=== PATIENT | male | born 1990 | race Caucasian/White ===

== ENCOUNTER 2023-05-15 18:14 | Observation (INO) ==
[2023-05-15] MEDS ORDERED: PANTOprazole 40 MG in SYRINGE 0 ML IV ONE ×2 (18:37→23:28)
[2023-05-15] MEDS ORDERED: ONDANSETRON INJ 2 MG/ML 2 ML VIAL IV STA (18:37)
--- NOTE | 2023-05-15 18:37 | ED Triage Note ---
Date of Service May 15, 2023 Provider in Triage Author: Eliot Rasmussen History of Present Illness This patient was briefly evaluated while in triage. An abbreviated physical exam was performed. This patient is a 33-year-old Male who presents to the ED for evaluation of vomi ting today. Had blood in the emesis. Symptoms started around 5:30pm, roughly 1 hour prior to arrival. No recent travel. No NSAID use. Does smoke tobacco and drink alcohol. Physical Exam Limited Triage Exam: VITALS: Vitals are noted on the nurse's note and reviewed by myself. Vital signs stable. GENERAL: Well-developed, well-nourished, white male, who is in no acute distress and resting comfortably. Patient is cooperative with the examination. HEART: Regular rate and rhythm without murmurs gallops or rubs. LUNGS: Clear to auscultation bilaterally without wheezes, rales or rhonchi. No retractions or accessory muscle use. NEURO: Patient was alert and oriented to person place and time. CN II through XII grossly intact. Initial orders for labs and / or imaging were placed and patient was placed in the waiting area until a bed is available. Please see further documentation for the full ED course.
[2023-05-15] MEDS ORDERED: SODIUM CHLORIDE 0.9% 1,000 ML IV SCH (18:45)
--- NOTE | 2023-05-15 19:02 | XRay Report ---
KUB HISTORY: Acute nausea with vomiting n/v COMPARISON: None. FINDINGS: Nonobstructive bowel gas pattern. Renal shadows are partially obscured by bowel gas. Left p elvic basin phlebolith. No renal calculi. No ureteral calculi. No pneumoperitoneum or pneumatosis. N o fracture. IMPRESSION: Nonobstructive bowel gas pattern. ACT 112: Negative or not required by law. The above report was generated using voice recognition software. It may contain grammatical, syntax o r spelling errors. Electronically signed by: Jaison Barakat M.D. 05/15/2023 7:01 PM
[2023-05-15 19:45] LABS: Basophils # (auto) 0.03 K/uL (0.00-0.20); Basophils % (auto) 0.3 %; Eosinophils # (auto) 0.07 K/uL (0.00-0.50); Eosinophils % (auto) 0.7 %; Hematocrit (blood only) 50.6 % (42.0-52.0); Hemoglobin 17.5 g/dl (14.0-18.0); Immature Granulocytes # (auto) 0.07 K/uL (0.01-0.20); Immature Granulocytes % (auto) 0.7 %; Lymphocytes # (auto) 2.27 K/uL (1.20-3.40); Lymphocytes % (auto) 21.1 %; Mean Corpuscular Hemoglobin 28.3 pg (25.0-34.0); Mean Corpuscular Hgb Conc 34.6 g/dL (32.0-36.0); Mean Corpuscular Volume 81.7 fL (80.0-100.0); Mean Platelet Volume 10.7 fL (9.4-12.4); Monocytes % (auto) 5.6 %; Neutrophils # (auto) 7.71 K/uL (1.40-6.50); Neutrophils % (auto) 71.6 %; Platelet Count 323 K/uL (130-400); RDW Standard Deviation 38.1 fL (36.4-46.3); Red Blood Count 6.19 M/uL (4.70-6.10); White Blood Count 10.75 K/ul (4.8-10.8)
[2023-05-15 20:05] LABS: Albumin Globulin Ratio 1.5 (0.9-2); Albumin Level 4.9 gm/dl (3.4-5.0); BUN Creatinine Ratio 6.7 (10-20); Calcium 9.9 mg/dl (8.6-10.3); Creatinine Clr Calc Pharmacy 120.5 ml/min; Est GFR (African American) 129.6 ml/min; Est GFR (Non-African American) 111.8 ml/min; Globulin 3.3 gm/dl (2.5-4.0); Potassium 3.2 mmol/L (3.5-5.1); Total Protein 8.2 gm/dl (6.0-8.3)
[2023-05-15 20:14] LABS: Partial Thromboplastin Time 27 Seconds (21-31); Prothrombin Time 11.3 Seconds (9.0-12.0)
[2023-05-15 20:33] LABS: Adenovirus PCR Not Detected (NotDetected); Bordetella parapertussis PCR Not Detected (NotDetected); Bordetella pertussis PCR Not Detected (NotDetected); Chlamydia pneumoniae PCR Not Detected (NotDetected); Coronavirus 229E PCR Not Detected (NotDetected); Coronavirus CoV-2 (COVID19)PCR Not Detected (NotDetected); Coronavirus HKU1 PCR Not Detected (NotDetected); Coronavirus NL63 PCR Not Detected (NotDetected); Coronavirus OC43PCR Not Detected (NotDetected); Human Metapneumovirus PCR Not Detected (NotDetected); Influenza A PCR Not Detected (NotDetected); Influenza B PCR Not Detected (NotDetected); Mycoplasma pneumoniae PCR Not Detected (NotDetected); Parainfluenza Virus 1 PCR Not Detected (NotDetected); Parainfluenza Virus 2 PCR Not Detected (NotDetected); Parainfluenza Virus 3 PCR Not Detected (NotDetected); Parainfluenza Virus 4 PCR Not Detected (NotDetected); Respiratory Syncytial VirusPCR Not Detected (NotDetected); Rhinovirus/Enterovirus PCR Not Detected (NotDetected)
[2023-05-15 21:47] LABS: Appearance Urine Clear (Clear); Bilirubin Urine Negative (Negative); Blood Urine Negative (Negative); Color Urine Yellow; Glucose Urine UA Negative (Negative); Ketones Urine Negative (Negative); Leukocyte Esterase Urine Negative (Negative); Nitrite Urine Negative (Negative); Protein Urine Negative (Negative); Specific Gravity Urine 1.007 (1.000-1.030); Urobilinogen Urine Negative (Negative); pH Urine 7.5 (4.5-7.5)
[2023-05-15 21:53] LABS: Hematocrit (blood only) 44.3 % (42.0-52.0); Hemoglobin 15.5 g/dl (14.0-18.0)
--- NOTE | 2023-05-15 23:33 | History & Physical Report ---
Date of Service May 15, 2023 Assessment & Plan (1) Hematemesis: Plan: 33 yo male with no significant PMHx presents with hematemesis. #Hematemesis -presented with sudden onset vomiting x2 episodes with bright red blood. No clear etiology however suspect upper GI bleed. Minimal alcohol use. DDx stress ulcer vs gastritis. Tachycardic on presentation but this has improved. No leukocytosis. He did have a 2 point drop in Hgb while in the ED. CXR unremarkabl e per my read. KUB with nonobstructive gas pattern. -NPO, IVF, protonix gtt, pepcid bid -GI consulted DVT ppx: SCDs; suspected active bleed FEN/GI: NPO Code Status: full Dispo: med tele History of Present Illness Chief Complaint: Hematemesis Primary Care Provider: JASON PCP 33 yo male with no significant PMHx presents with hematemesis. Yesterday afternoon patient had an episode of sudden onset vomiting with bright red blood. He vomited again on the way to the hospital. Denies headache, fevers, chills, fatigue, chest pain, shortness of breath, abdominal pain, nausea, diarrhea, dysuria, melena, extremity numbness/tingling/weakness. He smokes about 4 cigarettes a day for the last 10 years. Drinks about 4 beers a week on average. Denies recreational drug use. No history of GERD. No history of GI bleed. No recent illness. No NSAID use. He has had increased amount of stress over the last 2 months as he is going through a divorce. Because of this he does endorse some sadness and loss of appetite over that time with associated weight loss of about 10 pounds. Allergies Allergy/AdvReac Type Severity Reaction Status Date / Time No Known Allergies Allergy Unverified 05/15/23 23:26 Home Medications Medication Instructions Recorded Confirmed Type No Known Home Medications 05/15/23 05/15/23 History Past Med/Surg History Medical History (Updated 05/16/23 @ 04:33 by Leisa Lange DO) No significant past medical history Surgical History (Updated 05/16/23 @ 04:33 by Leisa Lange DO) No significant past surgical history Family History (Updated 05/16/23 @ 04:34 by Leisa Lange DO) Other No significant family history Social History Smoking Status: Current every day smoker Feels Safe at Home: Yes Review of Systems Review of Systems: All systems reviewed & are unremarkable except as noted in HPI & below Physical Exam Physical Exam: Constitutional: in no acute distress, pleasant and normal affect, intact memory. AOx3. Vitals as above. HEENT: No scleral injection or discharge. Moist mucous membranes. Clear oropharynx without exudate/blood. Neck: Supple without lymphadenopathy. Trachea midline. Lungs: Clear to auscultation bilaterally with good effort. No whee zes/rales/rhonchi. Cardiac: Regular rate and rhythm. No murmurs. No lower extremity edema. 2+ distal peripheral pulses. Abdomen: Bowel sounds present. Soft, nontender, and nondistended.No guarding. No hepatosplenomegaly. MSK: No cyanosis or clubbing. Extremities motor strength 5/5. Skin: No rashes, warm, dry. Neurologic: no focal deficits Results & Data Results & Data Vital Signs (Past 12 Hours) Vital Signs Temp Pulse Pulse Resp BP BP Pulse Ox 05/15/23 23:09 98 H 19 122/78 97 05/15/23 21:00 88 20 128/83 97 05/15/23 20:52 99 H 05/15/23 18:32 36.9 C 106 H 18 142/80 H 97 O2 Del Method 05/15/23 23:09 Room Air 05/15/23 21:00 Room Air 05/15/23 20:52 05/15/23 18:32 Room Air Laboratory Results Laboratory Results WBC 10.75 K/ul (4.8-10.8) 05/15/23 19:32 RBC 6.19 M/uL (4.70-6.10) H 05/15/23 19:32 Hgb 15.5 g/dl (14.0-18.0) 05/15/23 21:40 Hct 44.3 % (42.0-52.0) 05/15/23 21:40 MCV 81.7 fL (80.0-100.0) 05/15/23 19:32 MCH 28.3 pg (25.0-34.0) 05/15/23 19:32 MCHC 34.6 g/dL (32.0-36.0) 05/15/23 19:32 RDW Std Deviation 38.1 fL (36.4-46.3) 05/15/23 19:32 RDW Coeff of Juancarlos 13.0 % (11.5-14.5) 05/15/23 19:32 Plt Count 323 K/uL (130-400) 05/15/23 19:32 MPV 10.7 fL (9.4-12.4) 05/15/23 19:32 Immature Gran % (Auto) 0.7 % 05/15/23 19:32 Neut % (Auto) 71.6 % 05/15/23 19:32 Lymph % (Auto) 21.1 % 05/15/23 19:32 Campbell % (Auto) 5.6 % 05/15/23 19:32 Eos % (Auto) 0.7 % 05/15/23 19:32 Baso % (Auto) 0.3 % 05/15/23 19:32 Neut # (Auto) 7.71 K/uL (1.40-6.50) H 05/15/23 19:32 Lymph # (Auto) 2.27 K/uL (1.20-3.40) 05/15/23 19:32 Campbell # (Auto) 0.60 K/uL (0.11-0.59) H 05/15/23 19:32 Eos # (Auto) 0.07 K/uL (0.00-0.50) 05/15/23 19:32 Baso # (Auto) 0.03 K/uL (0.00-0.20) 05/15/23 19:32 Immature Gran # (Auto) 0.07 K/uL (0.01-0.20) 05/15/23 19:32 PT 11.3 Seconds (9.0-12.0) 05/15/23 19:32 INR 1.0 (0.9-1.1) 05/15/23 19:32 APTT 27 Seconds (21-31) 05/15/23 19:32 PTT Ratio 1.0 05/15/23 19:32 Sodium 140 mmol/L (136-145) 05/15/23 19:32 Potassium 3.2 mmol/L (3.5-5.1) L 05/15/23 19:32 Chloride 104 mmol/L (98-107) 05/15/23 19:32 Carbon Dioxide 26 mmol/L (21-32) 05/15/23 19:32 Anion Gap 10 (3-11) 05/15/23 19:32 BUN 6 mg/dl (6-23) 05/15/23 19:32 Creatinine 0.90 mg/dl (0.6-1.4) 05/15/23 19:32 Est Cr Clr Drug Dosing 120.5 ml/min 05/15/23 19:32 Est GFR ( Amer) 129.6 ml/min 05/15/23 19:32 Est GFR (Non-Af Amer) 111.8 ml/min 05/15/23 19:32 BUN/Creatinine Ratio 6.7 (10-20) L 05/15/23 19:32 Glucose 84 mg/dl (70-99(Fasting)) 05/15/23 19:32 Calcium 9.9 mg/dl (8.6-10.3) 05/15/23 19:32 Total Bilirubin 1.0 mg/dl (0.2-1.0) 05/15/23 19:32 AST 17 U/L (13-39) 05/15/23 19:32 ALT 16 U/L (7-52) 05/15/23 19:32 Alkaline Phosphatase 74 U/L (34-104) 05/15/23 19:32 Total Protein 8.2 gm/dl (6.0-8.3) 05/15/23 19:32 Albumin 4.9 gm/dl (3.4-5.0) 05/15/23 19:32 Globulin 3.3 gm/dl (2.5-4.0) 05/15/23 19:32 Albumin/Globulin Ratio 1.5 (0.9-2) 05/15/23 19:32 Urine Color Yellow 05/15/23 20:36 Urine Appearance Clear (Clear) 05/15/23 20:36 Urine pH 7.5 (4.5-7.5) 05/15/23 20:36 Ur Specific Gepp 1.007 (1.000-1.030) 05/15/23 20:36 Urine Protein Negative (Negative) 05/15/23 20:36 Urine Glucose (UA) Negative (Negative) 05/15/23 20:36 Urine Ketones Negative (Negative) 05/15/23 20:36 Urine Blood Negative (Negative) 05/15/23 20:36 Urine Nitrite Negative (Negative) 05/15/23 20:36 Urine Bilirubin Negative (Negative) 05/15/23 20:36 Urine Urobilinogen Negative (Negative) 05/15/23 20:36 Ur Leukocyte Esterase Negative (Negative) 05/15/23 20:36 Ethyl Alcohol mg/dL < 10.0 mg/dl (<10.0) 05/15/23 19:32 Adenovirus (PCR) Not Detected (NotDetected) 05/15/23 19:30 B. pertussis DNA (PCR) Not Detected (NotDetected) 05/15/23 19:30 B.parapertussis DNA PCR Not Detected (NotDetected) 05/15/23 19:30 C. pneumoniae DNA (PCR) Not Detected (NotDetected) 05/15/23 19:30 Coronavirus OC43 (PCR) Not Detected (NotDetected) 05/15/23 19:30 Coronavirus HKU1 (PCR) Not Detected (NotDetected) 05/15/23 19:30 Coronavirus 229E (PCR) Not Detected (NotDetected) 05/15/23 19:30 SARS-CoV-2 (PCR) Not Detected (NotDetected) 05/15/23 19:30 Coronavirus NL63 (PCR) Not Detected (NotDetected) 05/15/23 19:30 Human Metapneumovir PCR Not Detected (NotDetected) 05/15/23 19:30 Influenza Type A (PCR) Not Detected (NotDetected) 05/15/23 19:30 Influenza Type B (PCR) Not Detected (NotDetected) 05/15/23 19:30 M. pneumoniae (PCR) Not Detected (NotDetected) 05/15/23 19:30 Parainfluenza 1 (PCR) Not Detected (NotDetected) 05/15/23 19:30 Parainfluenza 2 (PCR) Not Detected (NotDetected) 05/15/23 19:30 Parainfluenza 3 (PCR) Not Detected (NotDetected) 05/15/23 19:30 Parainfluenza 4 (PCR) Not Detected (NotDetected) 05/15/23 19:30 RSV (PCR) Not Detected (NotDetected) 05/15/23 19:30 Entero/Rhino (PCR) Not Detected (NotDetected) 05/15/23 19:30 Impressions KUB X-Ray 05/15/23 18:38 KUB HISTORY: Acute nausea with vomiting n/v COMPARISON: None. FINDINGS: Nonobstructive bowel gas pattern. Renal shadows are partially obscured by bowel gas. Left pelvic basin phlebolith. No renal calculi. No ureteral calculi. No pneumoperitoneum or pneumatosis. No fracture. IMPRESSION: Nonobstructive bowel gas pattern. ACT 112: Negative or not required by law. The above report was generated using voice recognition software. It may contain grammatical, syntax or spelling errors. Electronically signed by: Jaison Barakat M.D. 05/15/2023 7:01 PM Supervising Physician Co-Signing Physician Notes Patient seen and examined, chart reviewed, case discussed with Dr. Ramos and I agree with the assessment and plan as above. In brief, patient is a 33yo male with no significant past medical or surgical history. He had sudden onset vomiting today which had some bright red blood at the end of the vomiting episode. He then had another episode of hematemesis. No abdominal pain. No liver disease or coagulopathy He drinks and smokes sparingly. Takes Advil infrequently On exam his is afebrile, HD stable, NAD Skin - no rash HEENT - MMM, Neck supple Heart - +S1/S2, regular Lungs - CTA Abd - soft, NT/ND Ext - warm, well perfused Labs and images reviewed. 17.5 --> 15.5. BUN is WNL Assessment/plan - 33yo male with hematemesis. Suspect Nikole-Yolanda tear vs gastritis, esophagitis or ulcer HD stable. No further bleeding. H/H is acceptable -Admit to medical with telemetry -Maintain PIV access -Protonix gtt initiated in ER - will continue -Trend CBC -GI consultation appreciated -Remainder as above Resident Activity Tracking Resident Involvement: Resident Care Provided Care Provided: Adult Hospital Medicine
[2023-05-16] MEDS ORDERED: FAMOTIDINE 20 MG in SYRINGE 3 ML IV STA (00:22)
[2023-05-16] MEDS: PANTOprazole 40 MG in DEXTROSE 5% MINI-B 100 ML IV SCH ×3 (00:45→11:07)
--- NOTE | 2023-05-16 02:00 | Emergency Department Note ---
Impression & Plan Hematemesis ED Provider Note CHIEF COMPLAINT: Bloody vomit HISTORY OF PRESENT ILLNESS: This 33-year-old male patient with no significant past medical history presents to the emergency department with complaints of vomiting blood. 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 Initial emesis was not bloody but subsequent episodes where bright red blood. The patient denies any diarrhea or significant abdominal pain at this time. He states he did have 3 beers earlier in the day. REVIEW OF SYSTEMS: A review of systems was performed with positives and pertinent negatives listed in the history of present illness. 10 systems were reviewed and are otherwise negative. ALLERGIES: see below MEDICATIONS: see below PMH: see below SOCIAL HISTORY: see below DDx: inflammatory bowel disease, malignancy, Nikole-Fulton tear, esophagitis, peptic ulcer disease, variceal bleed, gastritis, epistaxis, as well as others PHYSICAL EXAM: Vital signs reviewed. General: Well-appearing 33-year-old male, in no significant distress. HEENT: No scleral icterus, PERRLA, neck supple. Atraumatic. Cardiovascular: Regular rate and rhythm, no extra sounds. Pulmonary: Clear to auscultation bilaterally, normal work of breathing. Abdomen: Soft, minimal epigastric tenderness, no rebound or guarding. Nontender, nondistended, positive bowel sounds. Musculoskeletal: Atraumatic, no peripheral edema. Neurologic: Patient awake alert and oriented x 3, speech is clear Skin: Warm, dry, no rash EMERGENCY DEPARTMENT COURSE/MDM: This patient was evaluated and appeared to be in no significant distress. Orders have been placed by the provider in triage. Patient received IV Zofran and IV Protonix, hydrated with normal saline solution. KUB and chest x-ray were performed and reveal no evidence of free air or obstruction. I suspect the patient is suffering from Nikole-Fulton tear. Patient's initial hemoglobin was 17.5, on repeat it was 15.5. This may be an element of dilution however with patient's upper GI bleeding and hemoglobin drop, it is felt to be in the patient's best interest for close observation in the hospital. CT imaging of the abdomen pelvis was considered but felt not to be necessary at this time. Case was discussed with Dr. Lange of the hospitalist service who has agreed to evaluate the patient for admission and further management. The patient has expressed understanding and agrees. MONITORING: An order for cardiac monitoring was placed and the patient is noted to be in a sinus rhythm at 99 beats per minute. RADIOLOGY: KUB to my interpretation reveals no evidence of obstruction, no free air. Otherwise defer to radiology Chest x-ray to my interpretation reveals no evidence of focal lung consolidation or failure, no free air. Otherwise defer to radiology. DISPOSITION: Admission Past Med/Surg History Medical History (Updated 05/20/23 @ 06:40 by Saima Disla MD) No significant past medical history Surgical History (Updated 05/16/23 @ 04:33 by Leisa Lange DO) No significant past surgical history Family History (Updated 05/16/23 @ 04:34 by Leisa Lange DO) Other No significant family history Social History Smoking Status: Current every day smoker Tobacco Type: Cigarettes Hx Alcohol Use: Yes Alcohol type: beer Hx Substance Use: No Preferred Language: [place] Communication Ability: Effective Quill Skinner Required: No Beliefs That Will Affect Care: None Current Living Situation: Spouse Feels Safe at Home: Yes Assistive Devices: Glasses Allergies Allergies Allergy/AdvReac Type Severity Reaction Status Date / Time No Known Allergies Allergy Unverified 05/15/23 23:26 Home Meds Previous Rx's Medication Instructions Recorded pantoprazole 40 mg tablet,delayed 40 mg PO BID #60 tabs 05/16/23 release Results & Data (ED) Vital Signs Vital Signs - 24 hr 05/15/23 18:32 05/15/23 20:52 05/15/23 21:00 Temperature 36.9 C Temperature Source Temporal Artery Scan Pulse Rate 106 H 99 H 88 Pulse Rate [Apical] Pulse Rate from SpO2 Sensor 88 Pulse Rhythm [Apical] Pulse Strength [Apical] Respiratory Rate 18 20 Respiratory Effort / Characteristics Non-Labored Spontaneous Respiratory Depth Normal Respiratory Pattern Blood Pressure 142/80 H 128/83 Blood Pressure [Right Arm] Blood Pressure Mean 100 95 Blood Pressure Mean [Right Arm] Blood Pressure Position Sitting Blood Pressure Position [Right Arm] Pulse Oximetry 97 97 Oxygen Delivery Method Room Air Room Air Sepsis Recent Fever Within 48 Hours No Sepsis New/Unexplained Change in Mental Status N/A Sepsis Action Taken by Nursing No Action Required 05/15/23 23:09 05/16/23 00:49 Temperature Temperature Source Pulse Rate 88 Pulse Rate [Apical] 98 H Pulse Rate from SpO2 Sensor Pulse Rhythm [Apical] Regular Pulse Strength [Apical] Normal Respiratory Rate 19 Respiratory Effort / Characteristics Non-Labored Spontaneous Respiratory Depth Normal Respiratory Pattern Regular Blood Pressure Blood Pressure [Right Arm] 122/78 Blood Pressure Mean Blood Pressure Mean [Right Arm] 92 Blood Pressure Position Blood Pressure Position [Right Arm] Semi-fowlers Pulse Oximetry 97 Oxygen Delivery Method Room Air Sepsis Recent Fever Within 48 Hours Sepsis New/Unexplained Change in Mental Status Sepsis Action Taken by [facility] Medications Current Medication List: was personally reviewed by me Laboratory Data Attestation: I reviewed the patient's lab results. 05/16/23 07:20 05/16/23 07:20 Lab Results 05/15/23 05/15/23 05/15/23 Range/Units 19:30 19:32 20:36 WBC 10.75 (4.8-10.8) K/ul RBC 6.19 H (4.70-6.10) M/uL Hgb 17.5 (14.0-18.0) g/dl Hct 50.6 (42.0-52.0) % MCV 81.7 (80.0-100.0) fL MCH 28.3 (25.0-34.0) pg MCHC 34.6 (32.0-36.0) g/dL RDW Std Deviation 38.1 (36.4-46.3) fL RDW Coeff of Juancarlos 13.0 (11.5-14.5) % Plt Count 323 (130-400) K/uL MPV 10.7 (9.4-12.4) fL Immature Gran % (Auto) 0.7 % Neut % (Auto) 71.6 % Lymph % (Auto) 21.1 % [place] % (Auto) 5.6 % Eos % (Auto) 0.7 % Baso % (Auto) 0.3 % Neut # (Auto) 7.71 H (1.40-6.50) K/uL Lymph # (Auto) 2.27 (1.20-3.40) K/uL [place] # (Auto) 0.60 H (0.11-0.59) K/uL Eos # (Auto) 0.07 (0.00-0.50) K/uL Baso # (Auto) 0.03 (0.00-0.20) K/uL Immature Gran # (Auto) 0.07 (0.01-0.20) K/uL PT 11.3 (9.0-12.0) Seconds INR 1.0 (0.9-1.1) APTT 27 (21-31) Seconds PTT Ratio 1.0 Sodium 140 (136-145) mmol/L Potassium 3.2 L (3.5-5.1) mmol/L Chloride 104 (98-107) mmol/L Carbon Dioxide 26 (21-32) mmol/L Anion Gap 10 (3-11) BUN 6 (6-23) mg/dl Creatinine 0.90 (0.6-1.4) mg/dl Est Cr Clr Drug Dosing 120.5 ml/min Est GFR ( Amer) 129.6 ml/min Est GFR (Non-Af Amer) 111.8 ml/min BUN/Creatinine Ratio 6.7 L (10-20) Glucose 84 (70-99(Fasting)) mg/dl Calcium 9.9 (8.6-10.3) mg/dl Total Bilirubin 1.0 (0.2-1.0) mg/dl AST 17 (13-39) U/L ALT 16 (7-52) U/L Alkaline Phosphatase 74 (34-104) U/L Total Protein 8.2 (6.0-8.3) gm/dl Albumin 4.9 (3.4-5.0) gm/dl Globulin 3.3 (2.5-4.0) gm/dl Albumin/Globulin Ratio 1.5 (0.9-2) Urine Color Yellow Urine Appearance Clear (Clear) Urine pH 7.5 (4.5-7.5) Ur Specific [place] 1.007 (1.000-1.030) Urine Protein Negative (Negative) Urine Glucose (UA) Negative (Negative) Urine Ketones Negative (Negative) Urine Blood Negative (Negative) Urine Nitrite Negative (Negative) Urine Bilirubin Negative (Negative) Urine Urobilinogen Negative (Negative) Ur Leukocyte Esterase Negative (Negative) Ethyl Alcohol mg/dL < 10.0 (<10.0) mg/dl Adenovirus (PCR) Not Detected (NotDetected) B. pertussis DNA (PCR) Not Detected (NotDetected) B.parapertussis DNA PCR Not Detected (NotDetected) C. pneumoniae DNA (PCR) Not Detected (NotDetected) Coronavirus OC43 (PCR) Not Detected (NotDetected) Coronavirus HKU1 (PCR) Not Detected (NotDetected) Coronavirus 229E (PCR) Not Detected (NotDetected) SARS-CoV-2 (PCR) Not Detected (NotDetected) Coronavirus NL63 (PCR) Not Detected (NotDetected) Human Metapneumovir PCR Not Detected (NotDetected) Influenza Type A (PCR) Not Detected (NotDetected) Influenza Type B (PCR) Not Detected (NotDetected) M. pneumoniae (PCR) Not Detected (NotDetected) Parainfluenza 1 (PCR) Not Detected (NotDetected) Parainfluenza 2 (PCR) Not Detected (NotDetected) Parainfluenza 3 (PCR) Not Detected (NotDetected) Parainfluenza 4 (PCR) Not Detected (NotDetected) RSV (PCR) Not Detected (NotDetected) Entero/Rhino (PCR) Not Detected (NotDetected) 05/15/23 Range/Units 21:40 WBC (4.8-10.8) K/ul RBC (4.70-6.10) M/uL Hgb 15.5 (14.0-18.0) g/dl Hct 44.3 (42.0-52.0) % MCV (80.0-100.0) fL MCH (25.0-34.0) pg MCHC (32.0-36.0) g/dL RDW Std Deviation (36.4-46.3) fL RDW Coeff of Juancarlos (11.5-14.5) % Plt Count (130-400) K/uL MPV (9.4-12.4) fL Immature Gran % (Auto) % Neut % (Auto) % Lymph % (Auto) % [place] % (Auto) % Eos % (Auto) % Baso % (Auto) % Neut # (Auto) (1.40-6.50) K/uL Lymph # (Auto) (1.20-3.40) K/uL [place] # (Auto) (0.11-0.59) K/uL Eos # (Auto) (0.00-0.50) K/uL Baso # (Auto) (0.00-0.20) K/uL Immature Gran # (Auto) (0.01-0.20) K/uL PT (9.0-12.0) Seconds INR (0.9-1.1) APTT (21-31) Seconds PTT Ratio Sodium (136-145) mmol/L Potassium (3.5-5.1) mmol/L Chloride (98-107) mmol/L Carbon Dioxide (21-32) mmol/L Anion Gap (3-11) BUN (6-23) mg/dl Creatinine (0.6-1.4) mg/dl Est Cr Clr Drug Dosing ml/min Est GFR ( Amer) ml/min Est GFR (Non-Af Amer) ml/min BUN/Creatinine Ratio (10-20) Glucose (70-99(Fasting)) mg/dl Calcium (8.6-10.3) mg/dl Total Bilirubin (0.2-1.0) mg/dl AST (13-39) U/L ALT (7-52) U/L Alkaline Phosphatase (34-104) U/L Total Protein (6.0-8.3) gm/dl Albumin (3.4-5.0) gm/dl Globulin (2.5-4.0) gm/dl Albumin/Globulin Ratio (0.9-2) Urine Color Urine Appearance (Clear) Urine pH (4.5-7.5) Ur Specific [place] (1.000-1.030) Urine Protein (Negative) Urine Glucose (UA) (Negative) Urine Ketones (Negative) Urine Blood (Negative) Urine Nitrite (Negative) Urine Bilirubin (Negative) Urine Urobilinogen (Negative) Ur Leukocyte Esterase (Negative) Ethyl Alcohol mg/dL (<10.0) mg/dl Adenovirus (PCR) (NotDetected) B. pertussis DNA (PCR) (NotDetected) B.parapertussis DNA PCR (NotDetected) C. pneumoniae DNA (PCR) (NotDetected) Coronavirus OC43 (PCR) (NotDetected) Coronavirus HKU1 (PCR) (NotDetected) Coronavirus 229E (PCR) (NotDetected) SARS-CoV-2 (PCR) (NotDetected) Coronavirus NL63 (PCR) (NotDetected) Human Metapneumovir PCR (NotDetected) Influenza Type A (PCR) (NotDetected) Influenza Type B (PCR) (NotDetected) M. pneumoniae (PCR) (NotDetected) Parainfluenza 1 (PCR) (NotDetected) Parainfluenza 2 (PCR) (NotDetected) Parainfluenza 3 (PCR) (NotDetected) Parainfluenza 4 (PCR) (NotDetected) RSV (PCR) (NotDetected) Entero/Rhino (PCR) (NotDetected) Administered Medications Discontinued Medications Sodium Chloride (Nss) 1,000 mls @ 999 mls/hr IV .Q1H1M PRASHANTH Stop: 05/15/23 19:45 Last Infusion: 05/15/23 21:05 Dose: Infused Documented By: Admin: 05/15/23 19:27 Dose: 999 mls/hr Documented By: LUIS Pantoprazole Sodium 40 mg/ (Syringe) 10 mls @ 5 mls/min IV NOW ONE Stop: 05/15/23 18:38 Last Admin: 05/15/23 21:39 Dose: 5 mls/min Documented By: RAMÓN Pantoprazole Sodium 40 mg/ (Dextrose) 100 mls @ 20 mls/hr IV Q5H [facility] Stop: 06/14/23 23:29 Last Infusion: 05/16/23 13:01 Dose: Infused Documented By: Infusion: 05/16/23 13:00 Dose: 0 mg/hr, 0 mls/hr Documented By: Admin: 05/16/23 11:07 Dose: 8 mg/hr, 20 mls/hr Documented By: Infusion: 05/16/23 10:56 Dose: Infused Documented By: Admin: 05/16/23 05:56 Dose: 8 mg/hr, 20 mls/hr Documented By: Infusion: 05/16/23 05:56 Dose: Infused Documented By: Admin: 05/16/23 00:45 Dose: 8 mg/hr, 20 mls/hr Documented By: RAMÓN Pantoprazole Sodium 40 mg/ (Syringe) 10 mls @ 5 mls/min IV NOW ONE Stop: 05/15/23 23:29 Last Admin: 05/16/23 03:02 Dose: 5 mls/min Documented By: RAMÓN Famotidine 20 mg/ Syringe 5 mls @ 2.5 mls/min IV NOW STA Stop: 05/16/23 00:23 Last Admin: 05/16/23 00:45 Dose: 2.5 mls/min Documented By: RAMÓN Potassium Chloride (K Polo / Wtr) 10 meq in 100 mls @ 100 mls/hr IV Q1H PRASHANTH Stop: 05/16/23 05:44 Last Infusion: 05/16/23 09:00 Dose: Infused Documented By: Admin: 05/16/23 07:38 Dose: 75 mls/hr Documented By: Infusion: 05/16/23 07:19 Dose: Infused Documented By: Admin: 05/16/23 05:59 Dose: 75 mls/hr Documented By: Infusion: 05/16/23 05:59 Dose: Infused Documented By: Admin: 05/16/23 04:30 Dose: 100 mls/hr Documented By: FLACO Famotidine 20 mg/ Syringe 5 mls @ 2.5 mls/min IV BID PRASHANTH Stop: 06/15/23 08:59 Last Admin: 05/16/23 09:31 Dose: 2.5 mls/min Documented By: SHANDA Sodium Chloride (Nss) 1,000 mls @ 125 mls/hr IV .Q8H PRASHANTH Stop: 06/15/23 03:57 Last Infusion: 05/16/23 13:01 Dose: Infused Documented By: Admin: 05/16/23 04:31 Dose: 125 mls/hr Documented By: FLACO Ondansetron HCl (Ondansetron Inj 2 Mg/Ml 2 Ml Vial) 4 mg IV NOW STA Stop: 05/15/23 18:38 Last Admin: 05/15/23 19:27 Dose: 4 mg Documented By: LUIS Pantoprazole Sodium (Pantoprazole 40 Mg Tab) 40 mg PO BID PRASHANTH Stop: 06/15/23 12:44 Last Admin: 05/16/23 14:14 Dose: 40 mg Documented By: SHANDA Imaging Data Radiologist's Impression: KUB X-Ray 05/15/23 18:38 KUB HISTORY: Acute nausea with vomiting n/v COMPARISON: None. FINDINGS: Nonobstructive bowel gas pattern. Renal shadows are partially obscured by bowel gas. Left pelvic basin phlebolith. No renal calculi. No ureteral calculi. No pneumoperitoneum or pneumatosis. No fracture. IMPRESSION: Nonobstructive bowel gas pattern. ACT 112: Negative or not required by law. The above report was generated using voice recognition software. It may contain grammatical, syntax or spelling errors. Electronically signed by: Jaison Barakat M.D. 05/15/2023 7:01 PM Discharge Plan Visit Data Chief Complaint: Vomiting Stated Complaint: VOMITING BLOOD, SORE THROAT ED Provider: Saima Disla Discharge Problem: Hematemesis Patient Disposition: Admitted As Inpatient Discharge Instructions Interventions: ED Discharge Assessment Last Done: 05/16/23 04:05 Discharge Problem: Hematemesis Qualifiers: Nausea presence: with nausea Qualified Code(s): K92.0 - Hematemesis
[2023-05-16] MEDS ORDERED: ACETAMINOPHEN 1,000 MG/100 ML VIAL IV PRN (03:58)
[2023-05-16] MEDS ORDERED: ONDANSETRON INJ 2 MG/ML 2 ML VIAL IV PRN (03:58)
[2023-05-16] MEDS ORDERED: SODIUM CHLORIDE 0.9% 1,000 ML IV SCH (03:58)
[2023-05-16] MEDS: POTASSIUM CHLORIDE / WTR 10 MEQ/100 ML PLCT IV SCH ×3 (04:30→07:38)
--- NOTE | 2023-05-16 04:33 | Billing Data ---
Date of Service May 16, 2023 Coding Level of Care Code 02583 INT INP/OBS CARE
[2023-05-16] MEDS ORDERED: Nursing to Pharmacy Communication SCH (07:00)
--- NOTE | 2023-05-16 07:35 | XRay Report ---
SINGLE VIEW CHEST CLINICAL HISTORY: Hematemesis. FINDINGS: An AP, portable, upright chest radiograph is obtained. No prior studies are available for c omparison at the time of dictation. The cardiomediastinal silhouette is unremarkable. There is mild b ibasilar atelectasis. The lungs and pleural spaces are otherwise clear. No pneumothorax is seen. The bony thorax is grossly intact. IMPRESSION: No acute cardiopulmonary abnormality. ACT 112: Negative or not required by law. Electronically signed by: Jason Cuellar M.D. 05/16/2023 7:34 AM
[2023-05-16 08:01] LABS: Basophils # (auto) 0.04 K/uL (0.00-0.20); Basophils % (auto) 0.5 %; Eosinophils # (auto) 0.05 K/uL (0.00-0.50); Eosinophils % (auto) 0.7 %; Hematocrit (blood only) 47.7 % (42.0-52.0); Hemoglobin 16.3 g/dl (14.0-18.0); Immature Granulocytes # (auto) 0.05 K/uL (0.01-0.20); Immature Granulocytes % (auto) 0.7 %; Lymphocytes % (auto) 26.7 %; Mean Corpuscular Hemoglobin 28.4 pg (25.0-34.0); Mean Corpuscular Hgb Conc 34.2 g/dL (32.0-36.0); Mean Corpuscular Volume 83.1 fL (80.0-100.0); Mean Platelet Volume 10.8 fL (9.4-12.4); Monocytes # (auto) 0.58 K/uL (0.11-0.59); Monocytes % (auto) 7.8 %; Neutrophils # (auto) 4.76 K/uL (1.40-6.50); Neutrophils % (auto) 63.6 %; Platelet Count 269 K/uL (130-400); RDW Standard Deviation 38.9 fL (36.4-46.3); Red Blood Count 5.74 M/uL (4.70-6.10); White Blood Count 7.48 K/ul (4.8-10.8)
--- NOTE | 2023-05-16 08:06 | Hospitalist Progress Note ---
Date of Service May 16, 2023 Assessment & Plan (1) Hematemesis: Plan: Appears resolved Patient tolerated clear liquid diet today without issue. Discontinue IV pantoprazole and famotidine Start Pantoprazole 40 mg PO BID pending recommendations from GI. Will need outpatient gastroenterology follow-up for probable EGD Plan Labs are stable. Increase activity as tolerated Admission and Anticipated Discharge Date Admission Date: May 16, 2023 Subjective Attending: Dr. Angeles This is a 33-year-old male with no significant past medical history. He presented with hematemesis suspected to be from upper GI bleed. Presenting hemoglobin was 17.5. Patient then had a drop to 15.5. Morning labs this morning reveal Hgb of 16.3. Repeat labs are pending at this time. Patient has no thrombocytopenia. He is not on any anticoagulants or into the antiplatelet medications at home. No significant use of NSAIDs. Patient was initially placed on pantoprazole drip. This has been converted to famotidine IV twice daily. GI consult is pending. Patient afebrile. No leukocytosis. Patient denies any abdominal pain. No further emesis. Hungry. Reports 3-4 cigarettes per day. Drank two beers yesterday. No travel out of the area. No unusual or red colored foods. No hx of PUD or any other gastric issues. No prior EGD or colonoscopies. Last BM yeserday. No melana, hematochezia, BRBPR. No acute issues. Does report social stressors regarding current marriage. Review of Systems 2 Review of Systems: A total of 10 systems was reviewed and is negative other than as listed in the HPI Physical Exam 2 Physical Exam: GENERAL : No acute distress EYES: No icterus, gaze conjugate NOSE: No evidence of epistaxis MOUTH: No lesions or candidiasis NECK: Supple LUNGS: CTA B/L, no wheezes, rales or rhonchi HEART: Regular, rate controlled ABDOMEN: Soft, NT, ND, BS Present. no rebound tenderness. No tenderness with deep palpation EXTREMITIES: No LE edema, pedal pulses intact NEURO: A&OX3 Results & Data Results & Data Vital Signs (Past 12 Hours) Vital Signs Temp Pulse Pulse Pulse Resp BP BP 05/16/23 04:03 77 05/16/23 03:56 36.6 C 91 H 20 123/86 05/16/23 02:00 80 17 05/16/23 02:00 78 19 108/71 05/16/23 00:49 88 05/16/23 00:45 72 H 116/75 05/16/23 00:00 16 128/83 05/15/23 23:30 85 16 117/81 05/15/23 23:09 98 H 19 05/15/23 23:00 87 18 122/78 05/15/23 22:30 88 17 121/80 05/15/23 22:00 92 H 14 123/84 05/15/23 21:00 88 20 128/83 05/15/23 20:52 99 H BP Pulse Ox O2 Del Method 05/16/23 04:03 05/16/23 03:56 96 Room Air 05/16/23 02:00 05/16/23 02:00 98 Room Air 05/16/23 00:49 05/16/23 00:45 05/16/23 00:00 05/15/23 23:30 05/15/23 23:09 122/78 97 Room Air 05/15/23 23:00 05/15/23 22:30 95 Room Air 05/15/23 22:00 98 Room Air 05/15/23 21:00 97 Room Air 05/15/23 20:52 Laboratory Results 05/16/23 07:20 Diagnostic Findings KUB X-Ray 05/15/23 18:38 KUB HISTORY: Acute nausea with vomiting n/v COMPARISON: None. FINDINGS: Nonobstructive bowel gas pattern. Renal shadows are partially obscured by bowel gas. Left pelvic basin phlebolith. No renal calculi. No ureteral calculi. No pneumoperitoneum or pneumatosis. No fracture. IMPRESSION: Nonobstructive bowel gas pattern. ACT 112: Negative or not required by law. The above report was generated using voice recognition software. It may contain grammatical, syntax or spelling errors. Electronically signed by: Jaison Barakat M.D. 05/15/2023 7:01 PM L Chest X-Ray 05/16/23 00:18 SINGLE VIEW CHEST CLINICAL HISTORY: Hematemesis. FINDINGS: An AP, portable, upright chest radiograph is obtained. No prior studies are available for comparison at the time of dictation. The cardiomediastinal silhouette is unremarkable. There is mild bibasilar atelectasis. The lungs and pleural spaces are otherwise clear. No pneumothorax is seen. The bony thorax is grossly intact. IMPRESSION: No acute cardiopulmonary abnormality. ACT 112: Negative or not required by law. Electronically signed by: Jason Cuellar M.D. 05/16/2023 7:34 AM PG Care Time/CCT Total # of Minutes Spent Total Time Spent with Patient: Total time spent is greater than 50% in coordination of care (as documented) at patient's floor/unit and/or counseling patient: Coding Level of Care Code None Diagnoses Hematemesis K92.0 Comment No charge for this note. Patient is being discharged home. Refer to discharge summary
[2023-05-16 08:12] LABS: BUN Creatinine Ratio 5.6 (10-20); Calcium 8.8 mg/dl (8.6-10.3); Creatinine Clr Calc Pharmacy 121.9 ml/min; Est GFR (African American) 130.2 ml/min; Est GFR (Non-African American) 112.3 ml/min; Potassium 4.3 mmol/L (3.5-5.1)
[2023-05-16] MEDS ORDERED: FAMOTIDINE 20 MG in SYRINGE 3 ML IV SCH (09:00)
[2023-05-16] MEDS ORDERED: PANTOprazole 40 MG TAB PO SCH (12:45)
--- NOTE | 2023-05-16 17:39 | Discharge Summary ---
Date of Service May 16, 2023 Admission HPI Per Admitting Provider 33 yo male with no significant PMHx presents with hematemesis. Yesterday afternoon patient had an episode of sudden onset vomiting with bright red blood. He vomited again on the way to the hospital. Denies headache, fevers, chills, fatigue, chest pain, shortness of breath, abdominal pain, nausea, diarrhea, dysuria, melena, extremity numbness/tingling/weakness. He smokes about 4 cigarettes a day for the last 10 years. Drinks about 4 beers a week on average. Denies recreational drug use. No history of GERD. No history of GI bleed. No recent illness. No NSAID use. He has had increased amount of stress over the last 2 months as he is going through a divorce. Because of this he does endorse some sadness and loss of appetite over that time with associated weight loss of about 10 pounds. Discharge Data Allergies Allergy/AdvReac Type Severity Reaction Status Date / Time No Known Allergies Allergy Unverified 05/15/23 23:26 Consultations 05/15/23 23:27 ED Decision to Admit Stat Hospital Course (1) Hematemesis: Appears resolved Patient tolerated clear liquid diet today without issue. Discontinue IV pantoprazole and famotidine Start Pantoprazole 40 mg PO BID pending recommendations from GI. Will need outpatient gastroenterology follow-up for probable EGD Plan Labs are stable. Increase activity as tolerated Discharge Plan Discharge Items Reason For Visit: HEMATAEMESIS Discharge Diagnosis: Hematemesis Activity: Resume your previous activity Lifting: Gradually increase as tolerated Bathing: No limitations Sexual Activity: Wait until after follow-up appointment Exercise/Sports: Gradually increase as tolerated Driving/Machine Use: No limitations Weightbearing: Full weightbearing Non-emergency contact: Primary Care Provider Call non-emergency contact if: you have any medication questions and your symptoms worsen Follow-up/Referrals: Sebastian Tate, [Physician] - (We will set up appointment with Dr. Tate and call you Wednesday at home with date and time. ) PCP,NO [Primary Care Provider] - Diet: Low Fat Addtl Attending Provider Instructions: you were admitted for diagnoses and treatment of blood with your vomit. While an inpatient, you had no further vomiting and no evidence of GI bleed. However, you do need outpatient follow-up to rule out ulcer or other reasons for bleeding. [facility] gastroenterology has been contacted and is happy to see you as an outpatient. Case management will contact them and call you on Wednesday with your appointment time. If you do not hear from anyone on Wednesday, please call to check on appointment time. You will be given 3 tablets of pantoprazole 40 mg. You should take this starting tomorrow morning and every 12 hours until seen by gastroenterology. A prescription has been sent into [facility] as should be picked up on Wednesday when they open. You should eat soft bland food until seen by gastroenterology. Please avoid alcohol and spicy foods until that time. If you have any further problems with blood in your vomit or dark stool, blood-tinged stool, or worsening nausea and vomiting, please contact us for further information or present to the emergency department for further evaluation. You should work on reducing your tobacco intake with a goal of complete abstention of all tobacco products. Pending Studies at Discharge: No Stand-Alone Forms: My [facility], Smoking Cessation Medications and DC Order Prescriptions: New pantoprazole 40 mg Tablet,Delayed Release (Dr/Ec) 40 mg PO BID Qty: 60 0RF Admission Data Admit Date/Time: 05/16/23 00:16 Attending Provider: Rodrigo Angeles Admit Provider: Quan Ramos Primary Care Provider: PCP,NO Other Providers: Leisa Lange Coding Diagnoses Hematemesis K92.0
[2023-05-17] MEDS ORDERED: PANTOprazole 40 MG TAB PO SCH ×2 (09:00)
== END 2023-05-16 18:38 | disposition home or self-care (01) ==
LOC: EDINP 18:14 → ED 18:14 → SUATTDRO 05-16 00:16 → 2N 05-16 03:53